=== PATIENT | female | born 1965 | race Caucasian/White ===

== ENCOUNTER 2023-09-15 14:37 | Outpatient (AMB) | payer OTHER, SELFPAY ==
--- NOTE | 2023-09-15 14:41 | MHC.OFFWIV ---
Intake Vital Signs 09/15/23 14:42 Height 4 ft 10 in Weight 188 lb BMI 39.3 BP 150/90 H Blood Pressure Location Lt brachial Position Sitting Pulse 78 Pulse Source Pulse Oximeter Temp 97.9 F Temp Source Temporal Artery Scan Pulse Oximetry (%) 96 Oxygen Delivery Method Room Air Intake Visit Reasons: [employer] WC LT Knee/Thigh Intake Note: pt is here today for lft knee/thigh started today Patient Tobacco Use Status: Never used Tobacco Allergies diphenhydramine [From Benadryl] Allergy (Mild, Verified 09/15/23 14:49) Hives Tetracyclines Allergy (Mild, Verified 09/15/23 14:49) Vomiting mark Allergy (Mild, Uncoded 09/15/23 14:49) Insomnia Do you need a note to return to daycare/school/sports/work: Yes HPI HPI Comments History of Present Illness Details This is a 58 year old female with a past medical history of a left patella fracture with surgical repair in approximately 2001 presenting for evaluation of a work-place injury that occurred at approximately 9:00 a.m. today. 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 The patient was leaving a client's home this morning, carrying the child's book bag when she missed a step down in the sidewalk. The patient lost her balance and fell onto her left side. She denies any head injury or loss of consciousness and was able to get up independently on her own. Patient is complaining of an aching pain in her left lateral thigh and her left lateral knee. Patient took Advil today prior to coming to the walk-in as well as an ice compress. Patient notified her employer and was told to follow-up with Jose as an outpatient following her appointment here. Of note, patient also fell on 09/12/2023 injuring her left hand while at work, however was not seen for this injury and is not concerned about this injury today. FORMERLY [facility], 1928–1983 Social History Patient Tobacco Use Status: Never used Tobacco Review of Systems Const All systems reviewed & are unremarkable except as noted in HPI and below Reports as per HPI, Denies fatigue and Denies fever(s) Eyes Reports no additional complaints ENT Reports no additional complaints Card Reports no additional complaints Resp Reports as per HPI Musc Denies back pain, Reports arthralgias (left knee), Reports joint swelling and Reports limited range of motion (left knee) Skin/Breast Reports system reviewed and no additional complaints, except as documented Endo Denies fatigue Physical Exam Vital Signs: Last Vital Signs Temp 97.9 F 09/15/23 14:42 Pulse 78 09/15/23 14:42 BP 150/90 H 09/15/23 14:42 Pulse Ox 96 09/15/23 14:42 Oxygen Delivery Method Room Air 09/15/23 14:42 BMI result Body Mass Index 39.3 Const General: cooperative, comfortable and no acute distress Nutritional Appearance: overweight Orientation/consciousness: patient oriented x3 Limitations: no limitations Eyes Periorbital: periorbital findings normal EOM: EOMs intact bilaterally Skin Other: mild excoriations noted left anterior knee; no evidence of a retained foreign body or secondary cellulitis. Neuro General: patient oriented x3 Extrem General: Yes full ROM (passive ROM left knee intact), Yes no joint enlargement (left knee), Yes no calf tenderness (left) and No normal gait (favoring LLE) Left lower extremity: knee (tenderness to palpation left lateral knee joint without joint laxity) Details: tenderness, normal ROM and other (pain to direct palpation left quadriceps tendon and distal IT band; no pain to palpation of left femur) Psych Appearance: grossly normal Mental Status: mental status grossly normal Insight: Good insight present (Psych) Judgement: Good judgement present (Psych) Assessment & Plan Assessment & Plan (1) Contusion of left knee, initial encounter: Comment: Given this patient's history coupled with her examination I do not feel that imaging is warranted at this time. Code(s): S80.02XA - Contusion of left knee, initial encounter Plan: An Jurgen bandage is applied for compression, patient is encouraged to use ice compresses 20 minute intervals over the next 24 hours and take Naprosyn 500mg twice daily for the next 10 days. Patient will follow up with Syb[facility] within 48 hours for ongoing management of this work.place injury. Medications: New naproxen (Naprosyn) 500 mg PO BID 20 tabs 0RF 10 days Coding Level of Care Code New Pt Level 3 (65966) Diagnoses Contusion of left knee, initial encounter S80.02XA Time Spent (min) 25
[2023-09-15 14:42] VITALS: BP 150/90; PULSE 78; TEMP 36.6; O2SAT 96; BMI 39.3
== END 2023-09-15 15:33 | disposition home or self-care (01) ==
PROVIDERS: PCP Internal Medicine; Visit Provider Physician Assistant
DX: S80.02XA Contusion of left knee, initial encounter (principal)
CPT/HCPCS: 99203